=== PATIENT | male | born 1975 | race Caucasian/White ===

== ENCOUNTER 2016-08-13 20:12 | Emergency (ER) | payer BC, MEDICAID ==
[~2016-08-13] VITALS: Ht 175.3 cm; Wt 90.7 kg
[2016-08-13 20:21] VITALS: BP_SYST 155
--- NOTE | 2016-08-13 20:27 | NUR ---
Patient to ER bed 3 to gown for evaluation. Side rails up. Report given to Eliot CIFUENTES.
--- NOTE | 2016-08-13 20:37 | NUR ---
Note undone in EDM - 08/14/16 at 0449 by MARYCARMEN Pt had a mechanical fall from approx 3 ft while doing maintence on the roof. Pt landed on L arm and has deformity, swelling, and pain at L forearm. AAOx4. Pt remembers event. Denies KO. Pt denies hitting his head. Will continue to monitor. No other injuries or complaints mentioned/noted. No distress noted.
--- NOTE | 2016-08-13 20:37 | NUR ---
Pt had a mechanical fall from approx 3 ft while doing maintence on the roof. Pt landed on L arm and has deformity, swelling, and pain at L forearm. Pt reports pain in L foot with swelling as well. AAOx4. Pt remembers event. Denies KO. Pt denies hitting his head. Will continue to monitor. No other injuries or complaints mentioned/noted. No distress noted.
--- NOTE | 2016-08-13 20:37 | NUR ---
MJ Mensah assessing pt at bedside.
[2016-08-13] MEDS ORDERED: MORPHINE SULFATE 10 MG/ML VIAL IM ONE (20:45)
[2016-08-13] MEDS ORDERED: ONDANSETRON 4 MG ODT TAB PO ONE (20:45)
--- NOTE | 2016-08-13 21:13 | NUR ---
Patient reports pain 3/10. No adverse reactions noted. Will continue to monitor.
[2016-08-13 21:36] VITALS: BP_SYST 140
--- NOTE | 2016-08-13 21:36 | NUR ---
Patient given written and verbal discharge instructions and verbalizes understanding. ER CUT OUT PRESS OPERATOR discussed with patient the results and treatment provided. Patient in stable condition. ID arm band removed. Rx of [place] given. Patient educated on pain management and to follow up with PMD. Pain Scale 3/10. Opportunity for questions provided and answered. No adverse drug reactions witnessed.
== END 2016-08-13 21:36 | disposition home or self-care (01) ==
LOC: SED 20:12
DX: S52.502A Unspecified fracture of the lower end of left radius, initial encounter for closed fracture (principal); S52.252A Displaced comminuted fracture of shaft of ulna, left arm, initial encounter for closed fracture; Z98.84 Bariatric surgery status; Z88.5 Allergy status to narcotic agent; W17.89XA Other fall from one level to another, initial encounter; Y93.39 Activity, other involving climbing, rappelling and jumping off; Y92.89 Other specified places as the place of occurrence of the external cause; Y99.8 Other external cause status
CPT/HCPCS: 29105; 73110; 73630; 96372; 99284; J2270; Q0162

== ENCOUNTER 2016-08-25 10:19 | Day surgery (SDC) | payer BC ==
[2016-08-22 13:30] LABS: BILIRUBIN,URINE NEGATIVE (NEGATIVE); BLOOD, URINE NEGATIVE (NEGATIVE); CLARITY/URINE CLEAR (CLEAR); COLOR,URINE YELLOW (YELLOW); GLUCOSE,URINE NEGATIVE (NEGATIVE); KETONES,URINE NEGATIVE (NEGATIVE); LEUKOCYTE ESTERASE ,URINE NEGATIVE (NEGATIVE); NITRITE, URINE NEGATIVE (NEGATIVE); PROTEIN URINE NEGATIVE (NEGATIVE); UROBILINOGEN,URINE 0.2 (0.2-1.0)
[2016-08-22 13:30] LABS: BASOPHILS % (AUTO) 0.4 % (0.0-2.0); EOSINOPHILS # (AUTO) 0.1 K/uL (0.0-0.4); EOSINOPHILS % (AUTO) 2.1 % (0.0-4.0); HEMATOCRIT 38.5 % (36-54); HEMOGLOBIN 12.8 g/dL (14.0-18.0); LYMPHOCYTES # (AUTO) 1.9 K/uL (1.0-5.5); LYMPHOCYTES % (AUTO) 35.4 % (20.5-51.5); MEAN CORPUSCULAR HEMOGLOBIN 29 pg (27-31); MEAN CORPUSCULAR HGB CONC 33 % (32-36); MEAN CORPUSCULAR VOLUME 86 fL (79.0-98.0); MONOCYTES # (AUTO) 0.5 K/uL (0.0-1.0); MONOCYTES % (AUTO) 10.1 % (1.7-9.3); NEUTROPHILS # (AUTO) 2.9 K/uL (1.8-7.7); PLATELET COUNT (AUTO) 185 K/uL (130-430); RED CELL DISTRIBUTION WIDTH 14.2 % (9.0-15.0); WHITE BLOOD COUNT (AUTO) 5.4 K/uL (4.8-10.8)
[~2016-08-25] VITALS: Ht 175.3 cm; Wt 83.9 kg
[2016-08-25] MEDS ORDERED: SEVOFLURANE 15 MIN GAS INH ONE (11:31)
[2016-08-25] MEDS ORDERED: LR 1,000 ML IV.SOLN IV ONE (11:31)
[2016-08-25] MEDS ORDERED: PROPOFOL 200MG/ 20ML VIAL (DIPRIVAN) IV ONE (11:31)
[2016-08-25] MEDS ORDERED: ONDANSETRON HCL 4 MG/2 ML VIAL IVP ONE (11:31)
[2016-08-25] MEDS ORDERED: fentaNYL CITRATE 250 MCG/5 ML AMP IV ONE (11:31)
[2016-08-25] MEDS ORDERED: MIDAZOLAM HCL 5 MG/5 ML VIAL IVP ONE (11:31)
[2016-08-25] MEDS ORDERED: WATER FOR IRRIGATION,STERILE 1,000 ML IRRIG.SOLN IR ONE (11:31)
[2016-08-25] MEDS ORDERED: LR 1,000 ML IV SCH (12:24)
[2016-08-25] MEDS ORDERED: MEPERIDINE HCL/PF 25 MG/ML DISP.SYRIN IVP PRN (12:30)
[2016-08-25] MEDS ORDERED: ONDANSETRON HCL 4 MG/2 ML VIAL IVP PRN (12:30)
[2016-08-25] MEDS: MEPERIDINE HCL/PF 25 MG/ML DISP.SYRIN IVP PRN ×2 (13:43→14:08)
[2016-08-25] MEDS ORDERED: MEPERIDINE HCL/PF 25 MG/ML DISP.SYRIN ONE ×2 (13:43→14:12)
[2016-08-25 14:49] VITALS: BP_SYST 148
== END 2016-08-25 15:25 | disposition home or self-care (01) ==
LOC: SDS 10:19 → SMU 10:19 → SDS 15:25
PROVIDERS: ATTEND Orthopaedic Surgery
DX: S52.532A Colles' fracture of left radius, initial encounter for closed fracture (principal); W19.XXXA Unspecified fall, initial encounter; Y93.9 Activity, unspecified; Y92.89 Other specified places as the place of occurrence of the external cause; Y99.9 Unspecified external cause status; F17.210 Nicotine dependence, cigarettes, uncomplicated; Z98.890 Other specified postprocedural states; Z87.81 Personal history of (healed) traumatic fracture; Z98.84 Bariatric surgery status; I11.0 Hypertensive heart disease with heart failure; I50.9 Heart failure, unspecified
CPT/HCPCS: 25606; 36415; 76000; 81003; 85025; C1713; J2175; J2250; J2405; J2704; J3010; J7120

== ENCOUNTER 2022-11-06 17:14 | Inpatient (IN) | payer BC ==
[~2022-11-06] VITALS: Ht 175.3 cm; Wt 103.1 kg
[2022-11-06 17:15] VITALS: BP_SYST 155; PULSE 85; RESP 17; TEMP 97.2; O2SAT 97
[2022-11-06] MEDS ORDERED: DIPHENHYDRAMINE INJ 50 MG/ML VIAL IVP ONE (18:30)
[2022-11-06] MEDS ORDERED: NACL 0.9% 1,000 ML IV ONE ×2 (18:30→21:00)
[2022-11-06] MEDS ORDERED: METOCLOPRAMIDE HCL 10 MG/2 ML VIAL IVP ONE (18:30)
[2022-11-06 18:45] LABS: BASOPHILS # (AUTO) 0.1 K/uL (0.0-0.2); BASOPHILS % (AUTO) 0.9 % (0.0-2.0); EOSINOPHILS # (AUTO) 0.3 K/uL (0.0-0.4); EOSINOPHILS % (AUTO) 3.7 % (0.0-4.0); HEMOGLOBIN 10.4 g/dL (14.0-18.0); LYMPHOCYTES # (AUTO) 2.1 K/uL (1.0-5.5); LYMPHOCYTES % (AUTO) 28.3 % (20.5-51.5); MEAN CORPUSCULAR HEMOGLOBIN 19 pg (27-31); MEAN CORPUSCULAR HGB CONC 31 % (32-36); MEAN CORPUSCULAR VOLUME 63 fL (79.0-98.0); MONOCYTES # (AUTO) 0.7 K/uL (0.0-1.0); MONOCYTES % (AUTO) 9.5 % (1.7-9.3); NEUTROPHILS # (AUTO) 4.2 K/uL (1.8-7.7); NEUTROPHILS % (AUTO) 57.6 % (40.0-70.0); PLATELET COUNT (AUTO) 286 K/uL (130-430); RED BLOOD CELL COUNT(AUTO) 5.38 MIL/uL (4.2-6.2); RED CELL DISTRIBUTION WIDTH 21.3 % (9.0-15.0); WHITE BLOOD COUNT (AUTO) 7.3 K/uL (4.8-10.8)
[2022-11-06 19:00] LABS: CALCIUM 8.3 mg/dL (8.4-11.0); CREATININE 0.87 mg/dL (0.55-1.30); POTASSIUM 4.3 mmol/L (3.5-5.1)
[2022-11-06 19:04] LABS: ALBUMIN 2.9 g/dL (3.4-4.8); TOTAL BILIRUBIN 0.2 mg/dL (0.0-1.0); TOTAL PROTEIN, SERUM 7.2 g/dL (6.4-8.3)
[2022-11-06 19:26] LABS: ANISOCYTOSIS 2+; HYPOCHROMASIA 1+
[2022-11-06 19:27] LABS: OVALOCYTES FEW; TARGET CELLS FEW; TEAR DROP CELLS FEW
[2022-11-06 23:30] LABS: INR 0.9 (0.80-1.20); PROTHROMBIN TIME 9.2 SECS (9.5-12.5)
[2022-11-06 23:36] VITALS: BP_SYST 143; PULSE 71; RESP 18; TEMP 97.1
[2022-11-07] VITALS: BP_SYST 132; PULSE 67; RESP 17; TEMP 97.2; O2SAT 98
[2022-11-07 00:26] LABS: BILIRUBIN,URINE NEGATIVE (NEGATIVE); BLOOD, URINE NEGATIVE (NEGATIVE); CLARITY/URINE Clear (CLEAR); COLOR,URINE YELLOW (YELLOW); GLUCOSE,URINE NEGATIVE (NEGATIVE); KETONES,URINE NEGATIVE (NEGATIVE); LEUKOCYTE ESTERASE ,URINE NEGATIVE (NEGATIVE); NITRITE, URINE NEGATIVE (NEGATIVE); PROTEIN URINE NEGATIVE (NEGATIVE); UROBILINOGEN,URINE 0.2 (0.2-1.0)
[2022-11-07] MEDS: D5/0.45 NS 1,000 ML IV SCH ×2 (01:21→14:14)
[2022-11-07 08:00] VITALS: O2SAT 98
[2022-11-07 08:26] VITALS: BP_SYST 123; PULSE 67; RESP 16; TEMP 98.4; O2SAT 97
[2022-11-07] MEDS ORDERED: ONDANSETRON HCL 4 MG/2 ML VIAL IVP PRN ×3 (11:15→16:45)
[2022-11-07] MEDS ORDERED: NALOXONE HCL 0.4 MG/ML AMP (NARCAN) IVP PRN ×4 (11:15→16:45)
[2022-11-07] MEDS ORDERED: D5/0.45 NS 1,000 ML IV SCH (11:15)
[2022-11-07] MEDS ORDERED: MORPHINE 2 MG/ML INJ. SYRINGE IVP PRN (11:15)
[2022-11-07] MEDS ORDERED: MORPHINE 4 MG INJ. 4 MG/ML VIAL IVP PRN (11:15)
[2022-11-07] MEDS ORDERED: LORazepam 2 MG/ML VIAL IVP PRN (11:15)
[2022-11-07 12:11] VITALS: BP_SYST 140; PULSE 61; RESP 20; TEMP 99; O2SAT 96
[2022-11-07 12:20] LABS: BASOPHILS % (AUTO) 0.7 % (0.0-2.0); EOSINOPHILS # (AUTO) 0.2 K/uL (0.0-0.4); EOSINOPHILS % (AUTO) 3.7 % (0.0-4.0); HEMATOCRIT 33.6 % (36-54); HEMOGLOBIN 10.2 g/dL (14.0-18.0); LYMPHOCYTES # (AUTO) 1.6 K/uL (1.0-5.5); LYMPHOCYTES % (AUTO) 27.9 % (20.5-51.5); MEAN CORPUSCULAR HEMOGLOBIN 19 pg (27-31); MEAN CORPUSCULAR HGB CONC 30 % (32-36); MEAN CORPUSCULAR VOLUME 63 fL (79.0-98.0); MONOCYTES # (AUTO) 0.6 K/uL (0.0-1.0); MONOCYTES % (AUTO) 9.7 % (1.7-9.3); NEUTROPHILS # (AUTO) 3.3 K/uL (1.8-7.7); PLATELET COUNT (AUTO) 261 K/uL (130-430); RED BLOOD CELL COUNT(AUTO) 5.34 MIL/uL (4.2-6.2); WHITE BLOOD COUNT (AUTO) 5.8 K/uL (4.8-10.8)
[2022-11-07 12:35] LABS: ALBUMIN 2.5 g/dL (3.4-4.8); CREATININE 0.82 mg/dL (0.55-1.30); POTASSIUM 4.2 mmol/L (3.5-5.1); TOTAL BILIRUBIN 0.4 mg/dL (0.0-1.0); TOTAL PROTEIN, SERUM 6.5 g/dL (6.4-8.3)
[2022-11-07 12:45] LABS: RED CELL DISTRIBUTION WIDTH 21.1 % (9.0-15.0)
[2022-11-07] MEDS ORDERED: SUGAMMADEX SODIUM 200 MG/2 ML VIAL IV ONE (15:30)
[2022-11-07] MEDS ORDERED: ceFAZolin SODIUM 2 GM VIAL ONE (15:30)
[2022-11-07] MEDS ORDERED: PROPOFOL 200MG/ 20ML VIAL (DIPRIVAN) IV ONE (15:30)
[2022-11-07] MEDS ORDERED: DEXAMETHASONE SOD PHOSPHATE 4 MG/ML VIAL ONE (15:30)
[2022-11-07] MEDS ORDERED: fentaNYL CITRATE/PF 100 MCG/2 ML AMP ONE (15:30)
[2022-11-07] MEDS ORDERED: BUPIVACAINE /PF 0.25% 30 ML VIAL INJ ONE (15:30)
[2022-11-07] MEDS ORDERED: ONDANSETRON HCL 4 MG/2 ML VIAL ONE (15:30)
[2022-11-07] MEDS ORDERED: SEVOFLURANE 15 MIN GAS INH ONE (15:30)
[2022-11-07] MEDS ORDERED: ROCURONIUM BROMIDE 10 MG/ML (ZEMURON) ONE (15:30)
[2022-11-07] MEDS ORDERED: NS IRRIG SOLN 1000 ML IR ONE (15:30)
[2022-11-07] MEDS ORDERED: LR 1,000 ML IV.SOLN IV ONE (15:30)
[2022-11-07] MEDS ORDERED: MIDAZOLAM HCL 2 MG/2 ML VIAL (VERSED) ONE (15:30)
[2022-11-07] MEDS ORDERED: HYDROmorphone 1 MG/ML INJ. CARTRIDGE IVP PRN ×3 (16:15→16:45)
[2022-11-07] MEDS ORDERED: METOCLOPRAMIDE HCL 10 MG/2 ML VIAL IVP PRN (16:15)
[2022-11-07] MEDS: NACL 0.9% 1,000 ML IV SCH (16:45)
[2022-11-07] MEDS ORDERED: ACETAMINOPHEN 325 MG TABLET PO PRN (16:45)
[2022-11-07 18:09] VITALS: BP_SYST 132; PULSE 68; RESP 18; TEMP 98.2; O2SAT 95
[2022-11-07] MEDS: CEFAZOLIN 1 GM IVPB PREMIX 50 ML IV SCH (18:22)
[2022-11-07 20:00] VITALS: BP_SYST 127; PULSE 61; RESP 22; TEMP 98.5; O2SAT 95; O2SAT 97
[2022-11-08 00:22] VITALS: BP_SYST 127; PULSE 61; RESP 22; TEMP 98.5; O2SAT 97
[2022-11-08] MEDS ORDERED: HYDROmorphone 1 MG/ML INJ. CARTRIDGE IVP PRN (00:30)
[2022-11-08 00:43] VITALS: BP_SYST 118; PULSE 74; RESP 16; TEMP 96.8; O2SAT 94
[2022-11-08] MEDS: CEFAZOLIN 1 GM IVPB PREMIX 50 ML IV SCH (02:19)
[2022-11-08] MEDS: NACL 0.9% 1,000 ML IV SCH ×2 (02:43→05:53)
[2022-11-08 05:48] LABS: BASOPHILS % (AUTO) 0.1 % (0.0-2.0); HEMATOCRIT 33.4 % (36-54); HEMOGLOBIN 10.1 g/dL (14.0-18.0); LYMPHOCYTES # (AUTO) 0.8 K/uL (1.0-5.5); LYMPHOCYTES % (AUTO) 8.3 % (20.5-51.5); MEAN CORPUSCULAR HEMOGLOBIN 19 pg (27-31); MEAN CORPUSCULAR HGB CONC 30 % (32-36); MEAN CORPUSCULAR VOLUME 63 fL (79.0-98.0); MONOCYTES # (AUTO) 0.5 K/uL (0.0-1.0); MONOCYTES % (AUTO) 5.4 % (1.7-9.3); NEUTROPHILS # (AUTO) 8.6 K/uL (1.8-7.7); NEUTROPHILS % (AUTO) 86.2 % (40.0-70.0); PLATELET COUNT (AUTO) 293 K/uL (130-430); RED BLOOD CELL COUNT(AUTO) 5.31 MIL/uL (4.2-6.2); RED CELL DISTRIBUTION WIDTH 20.8 % (9.0-15.0); WHITE BLOOD COUNT (AUTO) 9.9 K/uL (4.8-10.8)
[2022-11-08 05:58] LABS: ALBUMIN 2.5 g/dL (3.4-4.8); CALCIUM 8.2 mg/dL (8.4-11.0); CREATININE 0.7 mg/dL (0.55-1.30); POTASSIUM 4.3 mmol/L (3.5-5.1); TOTAL BILIRUBIN 0.4 mg/dL (0.0-1.0); TOTAL PROTEIN, SERUM 6.6 g/dL (6.4-8.3)
[2022-11-08 08:30] VITALS: BP_SYST 117; PULSE 80; RESP 17; TEMP 98; O2SAT 98
[2022-11-08 11:34] VITALS: O2SAT 98
[2022-11-08 12:30] VITALS: BP_SYST 120; PULSE 78; RESP 17; TEMP 97.5; O2SAT 97
[2022-11-08] MEDS ORDERED: HYDROmorphone 2 MG TAB PO PRN ×2 (13:00)
[2022-11-08] MEDS ORDERED: NALOXONE HCL 0.4 MG/ML AMP (NARCAN) IVP PRN ×4 (13:00→13:30)
[2022-11-08] MEDS ORDERED: HYDROcodone/ACETAMIN 10-325 MG TAB PO PRN (13:30)
[2022-11-08] MEDS ORDERED: HYDROcodone/ACETAMIN 5-325 MG TAB (NORCO/ VICODIN) PO PRN (13:30)
[2022-11-08 14:54] VITALS: BP_SYST 117; PULSE 80; RESP 16; TEMP 98; O2SAT 98
== END 2022-11-08 15:23 | disposition home or self-care (01) | DRG 355 ==
LOC: SED 17:14 → SMU 22:52
PROVIDERS: ADMIT Preventive Medicine Preventive Medicine/Occupational Environmental Medicine; ATTEND Preventive Medicine Preventive Medicine/Occupational Environmental Medicine
PROC: 0WPF0JZ Removal of Synthetic Substitute from Abdominal Wall, Open Approach (ICD-10-PCS; 2022-11-07)
PROC: 0WUF0JZ Supplement Abdominal Wall with Synthetic Substitute, Open Approach (ICD-10-PCS; principal; 2022-11-07 15:30)
DX: K43.6 Other and unspecified ventral hernia with obstruction, without gangrene (principal); I25.10 Atherosclerotic heart disease of native coronary artery without angina pectoris; E88.09 Other disorders of plasma-protein metabolism, not elsewhere classified; E83.51 Hypocalcemia; I11.0 Hypertensive heart disease with heart failure; I50.9 Heart failure, unspecified; D64.9 Anemia, unspecified; R74.01 Elevation of levels of liver transaminase levels; Z88.6 Allergy status to analgesic agent; Z88.5 Allergy status to narcotic agent; Z79.899 Other long term (current) drug therapy; Z98.84 Bariatric surgery status
CPT/HCPCS: 36415; 71045; 76376; 80048; 80053; 81003; 83690; 85025; 85610-TC; 86886; 86900; 86901; 87081; 88302; 93005; 97116-GP; 97163-GP; 97530-GP; J0690; J1100; J1170; J1200; J2270; J2405; J2704; J2765; J3010; J3465; J3490; J7120; Q9967